=== PATIENT | female | born 1980 | race African-American/Black ===

== ENCOUNTER 2021-01-09 21:48 | Emergency (ER) | payer SELFPAY ==
[2021-01-09] MEDS ORDERED: Ketorolac Tromethamine 30 MG/ML VIAL ONE (22:35)
[2021-01-09 22:41] LABS: #Eosinphils 0.2 10x3/uL (0.0-0.5); #Monocytes 0.6 10x3/uL (0.0-1.1); #Neutrophils 3.6 10x3/uL (1.5-8.4); %Basophils 0.6 % (0.0-2.0); %Eosinophils 3.7 % (0.0-6.0); %Lymphocytes 31.8 % (18.0-47.0); %Monocytes 9.3 % (0.0-10.0); %Neutrophils 54.1 % (40.0-75.0); Hemoglobin 10.4 g/dL (12.0-15.5); Mean Corpuscular Hemoglobin 24.8 pg (27.0-33.0); Mean Corpuscular Volume 79.8 fl (81.6-98.3); Mean Platelet Volume 9.1 fl (7.4-10.4); Platelet Count 389 10x3/uL (150-450); RBC Distribution Width 19.3 % (11.5-14.5); White Blood Cell (WBC) Count 6.6 10x3/uL (3.5-10.5)
[2021-01-09 22:57] LABS: ALT (SGPT) 20 U/L (8-55); AST (SGOT) 25 U/L (5-34); Albumin 4.2 g/dL (3.5-5.0); Alkaline Phosphatase 71 U/L (40-110); Anion Gap 12 mmol/L (10-20); BUN (Urea Nitrogen) 8 mg/dL (7.0-18.7); Bilirubin, Total 0.5 mg/dL (0.2-1.2); Calc. Creatinine Clearance 0 mL/min (70-130); Calcium 9.7 mg/dL (7.8-10.44); Carbon Dioxide 24 mmol/L (22-29); Chloride 103 mmol/L (98-107); Globulin 4.1 g/dL (2.4-3.5); Glucose 95 mg/dL (70-105); Potassium 3.4 mmol/L (3.5-5.1); Protein, Total 8.3 g/dL (6.0-8.3); Sodium 136 mmol/L (136-145)
[2021-01-10] MEDS ORDERED: Dexamethasone 4 mg/ml Vial ONE
== END 2021-01-10 00:18 | disposition home or self-care (01) ==
LOC: CSHERS 21:48
DX: M25.512 Pain in left shoulder (principal)
CPT/HCPCS: 36415; 80053; 84484; 85025; 93005; 96372; J1100; J1885

== ENCOUNTER 2021-11-13 15:00 | Inpatient (IN) | payer SELFPAY ==
[2021-11-13 15:48] LABS: Hemoglobin 12.1 g/dL (12.0-15.5); Mean Corpuscular HGB CONC 32.4 g/dL (32.0-36.0); Mean Corpuscular Hemoglobin 25.8 pg (27.0-33.0); Mean Corpuscular Volume 79.7 fl (81.6-98.3); Mean Platelet Volume 9.9 fl (7.4-10.4); Platelet Count 285 10x3/uL (150-450); RBC Distribution Width 13.3 % (11.5-14.5); Red Blood Cell (RBC) Count 4.69 10x6/uL (3.90-5.03); White Blood Cell (WBC) Count 3.7 10x3/uL (3.5-10.5)
[2021-11-13 15:49] LABS: MDiff Complete? YES
[2021-11-13 15:53] LABS: Bilirubin Neg (Negative); Blood, Urine 25 (Negative); Glucose, Urine (Dipstick) Normal (Negative); Ketone, Urine 5 mg/dL (Negative); Leukocyte 25 (Negative); Nitrite Negative (Negative); Protein, Urine (Dipstick) 30 mg/dl (Neg-Trace); Specific Gravity, Urine 1.025 3 (1.005-1.030)
[2021-11-13 15:56] LABS: BHCG - Serum Negative (NEGATIVE); Pregs Control Background? CLEAR/WHITE (CLR/WHITE); Pregs Control Bar Appear? YES (CONTROL BAR)
[2021-11-13 15:59] LABS: Bacteria/HPF Rare-Few HPF (None Seen); Calcium Oxalate Crystals Rare HPF (None Seen)
[2021-11-13 16:08] LABS: ALT (SGPT) 36 U/L (8-55); AST (SGOT) 32 U/L (5-34); Albumin 3.7 g/dL (3.5-5.0); Alkaline Phosphatase 110 U/L (40-110); Anion Gap 12 mmol/L (10-20); BUN (Urea Nitrogen) 10 mg/dL (7.0-18.7); Bilirubin, Total 0.7 mg/dL (0.2-1.2); Calc. Creatinine Clearance 0 mL/min (70-130); Calcium 10.1 mg/dL (7.8-10.44); Carbon Dioxide 23 mmol/L (22-29); Chloride 104 mmol/L (98-107); Estimated GFR 115; Globulin 3.5 g/dL (2.4-3.5); Glucose 134 mg/dL (70-105); Lipase 23 U/L (8-78); Potassium 3.9 mmol/L (3.5-5.1); Protein, Total 7.2 g/dL (6.0-8.3); Sodium 135 mmol/L (136-145)
[2021-11-13] MEDS ORDERED: Propranolol 40 MG TAB PO SCH (16:15)
[2021-11-13 16:29] LABS: CKMB 2.6 ng/mL (0-6.6)
[2021-11-13 16:35] LABS: Free T4 (Free Thyroxine) 3.22 ng/dL (0.70-1.48); Thyroid Stimulating Hormone Less than 0.0025 uIU/mL (0.35-4.94)
[2021-11-13 16:36] LABS: Amphetamine Not Detected (NotDetected); Barbiturates Screen Not Detected (NotDetected); Benzodiazepine Screen Not Detected (NotDetected); Cocaine Metabolite Screen Not Detected (NotDetected); Methadone Not Detected (NotDetected); Methamphetamine Detected (NotDetected); Opiate Screen Not Detected (NotDetected); Oxycodone Screen Not Detected (NotDetected); Phencyclidine (PCP) Not Detected (NotDetected); THC/Cannabinoid Screen Detected (NotDetected); Tricyclic Screen Detected (NotDetected)
[2021-11-13 16:36] LABS: Acetaminophen Less than 10.0 mcg/mL (10.0-30.0); Alcohol Less than 10 mg/dL (Less than 10); Salicylate Less than 8.0 mg/dL (15.0-30.0)
[2021-11-13 16:38] LABS: Eosinophils 1 % (0-10); Lymphocytes 57 % (21-51); Monocytes 11 % (0-10); Neutrophil 31 % (42-75)
[2021-11-13 16:41] LABS: Platelet Morphology Comment Appears Adequate
[2021-11-13 16:42] LABS: RBC Morphology Normal
[2021-11-13 16:58] LABS: SARS-CoV-2 NAA Rapid Test Not Detected (NotDetected)
[2021-11-13] MEDS ORDERED: Lorazepam 2 MG/ML VIAL ONE (16:58)
[2021-11-13] MEDS ORDERED: Guaifenesin DM 100-10/5 ML UDCUP PO PRN (18:06)
[2021-11-13] MEDS ORDERED: Senokot S 8.6-50 MG TAB PO PRN (18:06)
[2021-11-13] MEDS: METHIMAZOLE 5 MG TABLET FS SCH (21:58)
[2021-11-13] MEDS: Sodium Chloride 0.9% 1,000 ML IV SCH (21:59)
[2021-11-13 22:11] LABS: Troponin I 0.025 ng/mL (< 0.028)
[2021-11-13 22:54] VITALS: BMI 27.8
[2021-11-14 04:15] LABS: Hemoglobin 10.8 g/dL (12.0-15.5); Mean Corpuscular Hemoglobin 25.4 pg (27.0-33.0); Mean Corpuscular Volume 79.3 fl (81.6-98.3); Mean Platelet Volume 9.8 fl (7.4-10.4); Platelet Count 265 10x3/uL (150-450); RBC Distribution Width 13.4 % (11.5-14.5); Red Blood Cell (RBC) Count 4.26 10x6/uL (3.90-5.03); White Blood Cell (WBC) Count 4.4 10x3/uL (3.5-10.5)
[2021-11-14] MEDS: METHIMAZOLE 5 MG TABLET FS SCH (04:29)
[2021-11-14 04:31] LABS: ALT (SGPT) 31 U/L (8-55); AST (SGOT) 26 U/L (5-34); Albumin 3.3 g/dL (3.5-5.0); Alkaline Phosphatase 98 U/L (40-110); Anion Gap 11 mmol/L (10-20); BUN (Urea Nitrogen) 13 mg/dL (7.0-18.7); Bilirubin, Total 0.4 mg/dL (0.2-1.2); Calc. Creatinine Clearance 149 mL/min (70-130); Calcium 9.3 mg/dL (7.8-10.44); Carbon Dioxide 24 mmol/L (22-29); Chloride 107 mmol/L (98-107); Estimated GFR 116; Globulin 3.1 g/dL (2.4-3.5); Glucose 114 mg/dL (70-105); Potassium 3.9 mmol/L (3.5-5.1); Protein, Total 6.4 g/dL (6.0-8.3); Sodium 138 mmol/L (136-145)
[2021-11-14 04:54] LABS: MDiff Complete? YES
[2021-11-14 04:57] LABS: Band 1 % (5-11); Eosinophils 2 % (0-10); Lymphocytes 59 % (21-51); Monocytes 12 % (0-10); Neutrophil 21 % (42-75); Reactive Lymphocytes 5 % (0-10)
[2021-11-14 04:58] LABS: Platelet Morphology Comment Appears Adequate; RBC Morphology Normal
[2021-11-14] MEDS: Sodium Chloride 0.9% 1,000 ML IV SCH ×2 (09:30→20:40)
[2021-11-14] MEDS: Enoxaparin Sodium 40 MG/0.4 ML SYRINGE SC SCH (09:31)
[2021-11-14] MEDS: Acetaminophen 325 MG TAB PO PRN ×2 (09:31→20:33)
[2021-11-14] MEDS: Atenolol 25 MG TAB PO SCH (09:31)
[2021-11-14] MEDS: Lidocaine Viscous Sol 2% 15 ml UD Cup SSW PRN (12:03)
[2021-11-14] MEDS: Methimazole 5 MG TAB PO SCH ×2 (12:03→20:33)
[2021-11-15] MEDS: Methimazole 5 MG TAB PO SCH ×3 (04:14→21:12)
[2021-11-15] MEDS: Enoxaparin Sodium 40 MG/0.4 ML SYRINGE SC SCH (09:16)
[2021-11-15] MEDS: Atenolol 25 MG TAB PO SCH (09:17)
[2021-11-15] MEDS: Lidocaine Viscous Sol 2% 15 ml UD Cup SSW PRN (09:24)
[2021-11-15] MEDS: Acetaminophen 325 MG TAB PO PRN (09:24)
[2021-11-15] MEDS: Sodium Chloride 0.9% 1,000 ML IV SCH (11:19)
[2021-11-16] MEDS: Methimazole 5 MG TAB PO SCH (04:25)
[2021-11-16] MEDS ORDERED: Ondansetron ODT 4 MG TAB PO SCH (08:00)
[2021-11-16 08:18] VITALS: BP 140/75; TEMP 98.7
[2021-11-16] MEDS: Enoxaparin Sodium 40 MG/0.4 ML SYRINGE SC SCH (08:36)
[2021-11-16] MEDS: Atenolol 25 MG TAB PO SCH (08:36)
== END 2021-11-16 08:55 | disposition home or self-care (01) | DRG 645 ==
LOC: CSHERS 15:00 → CSHTELE 19:51
PROVIDERS: ADMIT Hospitalist; ATTEND Family Medicine
DX: E05.00 Thyrotoxicosis with diffuse goiter without thyrotoxic crisis or storm (principal); H05.20 Unspecified exophthalmos; F19.10 Other psychoactive substance abuse, uncomplicated; Z71.51 Drug abuse counseling and surveillance of drug abuser; Z86.718 Personal history of other venous thrombosis and embolism; Z79.899 Other long term (current) drug therapy; Z90.49 Acquired absence of other specified parts of digestive tract; Z83.49 Family history of other endocrine, nutritional and metabolic diseases; Z20.822 Contact with and (suspected) exposure to COVID-19
CPT/HCPCS: 36415; 71045; 76536; 80053; 80306; 80307; 81003; 81015; 82553; 83605; 83690; 83880; 84439; 84443; 84481; 84484; 84703; 85025; 86376; 86800; 87040; 93005; 96374; J1650; J2060; J7050; Q0162; U0002

== ENCOUNTER 2021-12-14 15:32 | Emergency (ER) | payer SELFPAY ==
[2021-12-14] MEDS ORDERED: Ibuprofen 200 MG TAB ONE (17:59)
[2021-12-14] MEDS ORDERED: HYDROcodone/Acetaminophen 5/325 mg Tablet ONE (18:00)
== END 2021-12-14 18:04 | disposition home or self-care (01) ==
LOC: CSHERS 15:32
DX: K04.7 Periapical abscess without sinus (principal)
CPT/HCPCS: 99283

== ENCOUNTER 2022-03-06 06:53 | Emergency (ER) | payer OTHER, SELFPAY ==
[2022-03-06] MEDS ORDERED: Ketorolac Tromethamine 30 MG/ML VIAL ONE (07:42)
[2022-03-06] MEDS ORDERED: Ondansetron PF 4 MG/2 ML Vial ONE (07:42)
[2022-03-06 08:20] LABS: #Eosinphils 0.1 10x3/uL (0.0-0.5); #Monocytes 0.4 10x3/uL (0.0-1.1); #Neutrophils 1.5 10x3/uL (1.5-8.4); %Basophils 0.3 % (0.0-2.0); %Eosinophils 2.5 % (0.0-6.0); %Lymphocytes 48.5 % (18.0-47.0); %Monocytes 10.7 % (0.0-10.0); %Neutrophils 37.7 % (40.0-75.0); Hemoglobin 12.5 g/dL (12.0-15.5); Mean Corpuscular HGB CONC 32.9 g/dL (32.0-36.0); Mean Corpuscular Hemoglobin 25.6 pg (27.0-33.0); Mean Corpuscular Volume 77.7 fl (81.6-98.3); Mean Platelet Volume 9.4 fl (7.4-10.4); Platelet Count 301 10x3/uL (150-450); RBC Distribution Width 13.2 % (11.5-14.5); Red Blood Cell (RBC) Count 4.89 10x6/uL (3.90-5.03); White Blood Cell (WBC) Count 3.9 10x3/uL (3.5-10.5)
[2022-03-06 08:23] LABS: Bilirubin Neg (Negative); Blood, Urine 150 (Negative); Clarity Clear (Clear); Glucose, Urine (Dipstick) Normal (Negative); Ketone, Urine Negative (Negative); Leukocyte 25 (Negative); Nitrite Negative (Negative); Protein, Urine (Dipstick) Negative (Neg-Trace); Specific Gravity, Urine 1.015 (1.005-1.030); Urobilinogen Normal mg/dL (Less than 2)
[2022-03-06 08:57] LABS: BHCG - Serum Negative (NEGATIVE); Pregs Control Background? CLEAR/WHITE (CLR/WHITE); Pregs Control Bar Appear? YES (CONTROL BAR)
[2022-03-06 09:02] LABS: RBC/HPF 21-50 HPF (0-3); WBC/HPF 0-3 HPF (0-3)
[2022-03-06 09:03] LABS: Bacteria/HPF Rare-Few HPF (None Seen); Squamous Epithelial 0-3 HPF (0-3)
[2022-03-06 09:04] LABS: ALT (SGPT) 39 U/L (8-55); AST (SGOT) 26 U/L (5-34); Albumin 3.5 g/dL (3.5-5.0); Alkaline Phosphatase 114 U/L (40-110); Anion Gap 12 mmol/L (10-20); BUN (Urea Nitrogen) 12 mg/dL (7.0-18.7); Bilirubin, Total 0.5 mg/dL (0.2-1.2); Calc. Creatinine Clearance 0 mL/min (70-130); Calcium 9.9 mg/dL (7.8-10.44); Carbon Dioxide 23 mmol/L (22-29); Chloride 106 mmol/L (98-107); Estimated GFR 117; Globulin 3.6 g/dL (2.4-3.5); Glucose 105 mg/dL (70-105); Protein, Total 7.1 g/dL (6.0-8.3); Sodium 137 mmol/L (136-145)
== END 2022-03-06 10:20 | disposition home or self-care (01) ==
LOC: CSHERS 06:53
DX: D25.9 Leiomyoma of uterus, unspecified (principal); E05.90 Thyrotoxicosis, unspecified without thyrotoxic crisis or storm
CPT/HCPCS: 74176; 76856; 80053; 81003; 81015; 84703; 85025; 96374; 96375; J1885; J2405